=== PATIENT | female | born 1995 | race African-American/Black ===

== ENCOUNTER 2017-01-22 09:19 | Emergency (ER) | payer MEDICAID ==
[2017-01-22 10:21] LABS: BASOPHILS 0.1 % (0-2); EOSINOPHILS 0.5 % (0-7); HEMATOCRIT 39.1 % (36.0-48.0); IMMATURE GRANULOCYTES 0.1 % (0-5); LYMPHOCYTES 28.1 % (15-50); MCH 30.1 pg (26.0-34.0); MCHC 33.2 g/dL (31.0-37.0); MCV 90.5 fL (80.0-100.0); MEAN PLATELET VOLUME 10.7 fL (7.4-10.4); MONOCYTES 13.9 % (2-11); NEUTROPHILS 57.3 % (40-80); RBC 4.32 10x6/uL (4.00-5.40); WBC 8.1 10x3/uL (4.8-10.8)
[2017-01-22 10:37] LABS: PLATELET COUNT 297 10x3/uL (130-400)
[2017-01-22 10:44] LABS: ALBUMIN 3.6 g/dL (3.4-5.0); ALKALINE PHOSPHATASE 75 U/L (46-116); ALT (SGPT) 16 U/L (10-68); BILIRUBIN - TOTAL 0.54 mg/dL (0.2-1.3); CALC OSMOLALITY 271 mosm/kg (275-300); CARBON DIOXIDE 24.3 mmol/L (21.0-32.0); CHLORIDE - SERUM 101 mmol/L (98-107); CREATININE - SERUM 0.9 mg/dL (0.6-1.3); GLUCOSE 91 mg/dL (74-106); POTASSIUM - SERUM 3.2 mmol/L (3.5-5.1); PROTEIN - SERUM 8.1 g/dL (6.4-8.2); SODIUM 135 mmol/L (136-145); UREA NITROGEN 18 mg/dL (7-18); eGFR NON AFRICAN AMERICAN 83 mL/min (90-120)
[2017-01-22 12:31] LABS: HCG SERUM NEGATIVE (NEGATIVE)
[2017-01-22 12:54] LABS: APPEARANCE SLT CLOUDY (CLEAR); COLOR DK YELLOW (YELLOW); SPECIFIC GRAVITY 1.015 (1.005-1.020)
[2017-01-22 12:55] LABS: BACTERIA FEW /hpf (NONE SEEN); BILIRUBIN NEGATIVE (NEGATIVE); GLUCOSE NEGATIVE (NEGATIVE); KETONE LARGE mg/dL (NEGATIVE); LEUKOCYTE ESTERASE 1+ (NEGATIVE); NITRITE NEGATIVE (NEGATIVE); PROTEIN NEGATIVE (NEGATIVE); UROBILINOGEN NORMAL (NORMAL)
== END 2017-01-22 14:19 | disposition home or self-care (01) ==
LOC: D.ER 09:19
PROVIDERS: Emergency Medicine; Physician Assistant
DX: R10.11 Right upper quadrant pain (principal); E87.6 Hypokalemia; A59.9 Trichomoniasis, unspecified

== ENCOUNTER 2018-01-12 16:34 | Emergency (ER) | payer MEDICAID ==
[~2018-01-12] VITALS: Ht 160 cm; Wt 73.6 kg
[2018-01-12 16:37] VITALS: Ht 160 cm; Wt 73.6 kg
[2018-01-12 17:14] LABS: APPEARANCE CLOUDY (CLEAR); BILIRUBIN NEGATIVE (NEGATIVE); COLOR DK YELLOW (YELLOW); GLUCOSE NEGATIVE (NEGATIVE); HCG URINE NEGATIVE (NEGATIVE); KETONE MODERATE mg/dL (NEGATIVE); NITRITE NEGATIVE (NEGATIVE); PROTEIN 2+ mg/dL (NEGATIVE); SPECIFIC GRAVITY 1.005 (1.005-1.020)
[2018-01-12 17:17] LABS: BACTERIA MODERATE /hpf (NONE SEEN); MUCUS >1+ /lpf (NONE SEEN); RED CELLS - URINE >50 /hpf (0-5); WHITE CELLS - URINE >50 /hpf (0-5)
[2018-01-12 17:21] LABS: BASOPHILS 0.1 % (0-2); EOSINOPHILS 0.1 % (0-7); HEMATOCRIT 43.3 % (36.0-48.0); HEMOGLOBIN 14.4 g/dL (12-16); IMMATURE GRANULOCYTES 0.3 % (0-5); LYMPHOCYTES 28.4 % (15-50); MCH 30.3 pg (26.0-34.0); MCHC 33.3 g/dL (31.0-37.0); MCV 91.2 fL (80.0-100.0); MONOCYTES 6.3 % (2-11); NEUTROPHILS 64.8 % (40-80); PLATELET COUNT 309 10x3/uL (130-400); RBC 4.75 10x6/uL (4.00-5.40); RDW 13.2 % (11.5-14.5); WBC 6.9 10x3/uL (4.8-10.8)
[2018-01-12 17:34] LABS: HCG SERUM NEGATIVE (NEGATIVE)
[2018-01-12 17:39] LABS: ALBUMIN 4.1 g/dL (3.4-5.0); ANION GAP 11.6 mmol/L (8-16); BILIRUBIN - TOTAL 0.34 mg/dL (0.2-1.3); CALCIUM 9.6 mg/dL (8.5-10.1); CARBON DIOXIDE 29.6 mmol/L (21.0-32.0); CREATININE - SERUM 1.1 mg/dL (0.6-1.3); POTASSIUM - SERUM 3.2 mmol/L (3.5-5.1); PROTEIN - SERUM 8.4 g/dL (6.4-8.2)
[2018-01-12] MEDS ORDERED: ZOFRAN4 MG PO (19:30)
[2018-01-12] MEDS ORDERED: TYLENOL W/CODEI1 TAB PO (19:30)
[2018-01-12] MEDS ORDERED: MACROBID100 MG PO (19:30)
[2018-01-12 19:58] VITALS: BP 122/77
== END 2018-01-12 19:59 | disposition home or self-care (01) ==
LOC: D.ER 16:34
PROVIDERS: Emergency Medicine
DX: N39.0 Urinary tract infection, site not specified (principal); R51 Headache; R11.2 Nausea with vomiting, unspecified

== ENCOUNTER 2018-01-14 01:30 | Emergency (ER) | payer MEDICAID ==
[~2018-01-14] VITALS: Ht 160 cm; Wt 76.7 kg
[~2018-01-14 01:30] MED LIST: MACROBID100 MG PO; TYLENOL W/CODEI1 TAB PO; ZOFRAN4 MG PO
[2018-01-14 01:33] VITALS: Ht 160 cm; Wt 76.7 kg
[2018-01-14 02:18] LABS: ALBUMIN 3.9 g/dL (3.4-5.0); ANION GAP 14.1 mmol/L (8-16); BILIRUBIN - TOTAL 0.4 mg/dL (0.2-1.3); CALCIUM 9.2 mg/dL (8.5-10.1); POTASSIUM - SERUM 3.1 mmol/L (3.5-5.1); PROTEIN - SERUM 7.8 g/dL (6.4-8.2)
[2018-01-14 02:28] LABS: BASOPHILS 0 % (0-2); EOSINOPHILS 0 % (0-7); HEMATOCRIT 40.5 % (36.0-48.0); HEMOGLOBIN 13.4 g/dL (12-16); IMMATURE GRANULOCYTES 0.2 % (0-5); MCH 29.8 pg (26.0-34.0); MCHC 33.1 g/dL (31.0-37.0); MCV 90.2 fL (80.0-100.0); MEAN PLATELET VOLUME 11.2 fL (7.4-10.4); MONOCYTES 3.6 % (2-11); NEUTROPHILS 80.2 % (40-80); PLATELET COUNT 287 10x3/uL (130-400); RBC 4.49 10x6/uL (4.00-5.40); RDW 13.2 % (11.5-14.5); WBC 5.9 10x3/uL (4.8-10.8)
[2018-01-14 06:04] VITALS: BP 117/71
== END 2018-01-14 06:01 | disposition home or self-care (01) ==
LOC: D.ER 01:30
PROVIDERS: Family Medicine
DX: N39.0 Urinary tract infection, site not specified (principal); E87.6 Hypokalemia; R11.2 Nausea with vomiting, unspecified

== ENCOUNTER 2018-06-17 16:31 | Outpatient (CLI) | payer MEDICAID ==
[2018-01-14 01:33] VITALS: BMI 28.7
[~2018-06-17 16:31] MED LIST changes: -ZOFRAN ODT4 MG/UDTAB PO
[2018-06-17 17:26] LABS: APPEARANCE HAZY (CLEAR); COLOR YELLOW (YELLOW); NITRITE NEGATIVE (NEGATIVE); PROTEIN TRACE mg/dL (NEGATIVE); SPECIFIC GRAVITY 1.015 (1.005-1.020)
[2018-06-17 17:27] LABS: BACTERIA MODERATE /hpf (NONE SEEN); BILIRUBIN NEGATIVE (NEGATIVE); GLUCOSE NEGATIVE (NEGATIVE); KETONE MODERATE mg/dL (NEGATIVE); RED CELLS - URINE 0-5 /hpf (0-5); UROBILINOGEN NORMAL (NORMAL); WHITE CELLS - URINE 0-5 /hpf (0-5)
[2018-06-18] MEDS ORDERED: MACROBID100 MG PO (16:39)
[2018-06-18] MEDS ORDERED: ZOFRAN ODT4 MG/UDTAB PO (16:40)
== END 2018-06-17 20:16 | disposition home or self-care (01) ==
LOC: D.LDO 16:31
PROVIDERS: Obstetrics & Gynecology
DX: O26.892 Other specified pregnancy related conditions, second trimester (principal); Z3A.27 27 weeks gestation of pregnancy

== ENCOUNTER → 2018-06-17 | Emergency (ER) | payer MEDICAID ==
[~2018-06-17] MED LIST changes: +ZOFRAN ODT4 MG/UDTAB PO
== END | disposition home or self-care (01) ==
LOC: D.ER 15:47
DX: R10.9 Unspecified abdominal pain (principal); R51 Headache; R11.10 Vomiting, unspecified

== ENCOUNTER → 2018-06-18 11:16 | Outpatient (CLI) | payer MEDICAID ==
[2018-01-14 01:33] VITALS: BMI 28.7
[~2018-06-18 11:16] MED LIST changes: +ZOFRAN ODT4 MG/UDTAB PO
[2018-06-18 12:16] LABS: ALBUMIN 3.3 g/dL (3.4-5.0); ALKALINE PHOSPHATASE 57 U/L (46-116); ALT (SGPT) 35 U/L (10-68); CALC OSMOLALITY 269 mosm/kg (275-300); CALCIUM 9.1 mg/dL (8.5-10.1); CARBON DIOXIDE 23.3 mmol/L (21.0-32.0); CHLORIDE - SERUM 100 mmol/L (98-107); CREATININE - SERUM 0.8 mg/dL (0.6-1.3); GLUCOSE 116 mg/dL (74-106); POTASSIUM - SERUM 3.4 mmol/L (3.5-5.1); PROTEIN - SERUM 7.8 g/dL (6.4-8.2); SODIUM 135 mmol/L (136-145); UREA NITROGEN 10 mg/dL (7-18); eGFR NON AFRICAN AMERICAN > 90 mL/min (90-120)
[2018-06-18 12:33] LABS: BASOPHILS 0 % (0-2); EOSINOPHILS 0 % (0-7); HEMATOCRIT 34.2 % (36.0-48.0); HEMOGLOBIN 11.7 g/dL (12-16); IMMATURE GRANULOCYTES 0.4 % (0-5); LYMPHOCYTES 10.7 % (15-50); MCHC 34.2 g/dL (31.0-37.0); MCV 90.5 fL (80.0-100.0); MEAN PLATELET VOLUME 11.8 fL (7.4-10.4); MONOCYTES 7.4 % (2-11); NEUTROPHILS 81.5 % (40-80); PLATELET COUNT 244 10x3/uL (130-400); RBC 3.78 10x6/uL (4.00-5.40); RDW 12.8 % (11.5-14.5); WBC 10.2 10x3/uL (4.8-10.8)
[2018-06-18 14:21] LABS: APPEARANCE CLOUDY (CLEAR); BILIRUBIN NEGATIVE (NEGATIVE); COLOR YELLOW (YELLOW); GLUCOSE 1000 mg/dL (NEGATIVE); KETONE LARGE mg/dL (NEGATIVE); NITRITE NEGATIVE (NEGATIVE); PROTEIN NEGATIVE (NEGATIVE); UROBILINOGEN NORMAL (NORMAL)
[2018-06-18 14:22] LABS: EPITHELIAL CELLS 0-5 /hpf (0-5); RED CELLS - URINE 0-5 /hpf (0-5)
[2018-06-18 14:23] LABS: BACTERIA MODERATE /hpf (NONE SEEN); MUCUS <1+ /lpf (NONE SEEN)
== END | disposition home or self-care (01) ==
LOC: D.LDO 11:16
PROVIDERS: Obstetrics & Gynecology
DX: O26.892 Other specified pregnancy related conditions, second trimester (principal); Z3A.23 23 weeks gestation of pregnancy

== ENCOUNTER → 2018-08-25 13:32 | Outpatient (CLI) | payer MEDICAID ==
[2018-01-14 01:33] VITALS: BMI 28.7
[2018-08-25 14:53] LABS: COLOR YELLOW (YELLOW)
[2018-08-25 14:54] LABS: APPEARANCE CLEAR (CLEAR); BILIRUBIN NEGATIVE (NEGATIVE); GLUCOSE NEGATIVE (NEGATIVE); KETONE NEGATIVE (NEGATIVE); NITRITE NEGATIVE (NEGATIVE); PROTEIN NEGATIVE (NEGATIVE); UROBILINOGEN NORMAL (NORMAL)
[2018-08-25 14:56] LABS: WHITE CELLS - URINE 0-5 /hpf (0-5)
[2018-08-25 14:56] LABS: UDS - AMPHET NEGATIVE QUAL (NEGATIVE); UDS - BARB NEGATIVE QUAL (NEGATIVE); UDS - BENZO NEGATIVE QUAL (NEGATIVE); UDS - COCAINE NEGATIVE QUAL (NEGATIVE); UDS - OPIATE NEGATIVE QUAL (NEGATIVE); UDS - PCP NEGATIVE QUAL (NEGATIVE); UDS - THC POSITIVE QUAL (NEGATIVE)
[2018-08-25 14:57] LABS: BACTERIA FEW /hpf (NONE SEEN); EPITHELIAL CELLS 0-5 /hpf (0-5); MUCUS <1+ /lpf (NONE SEEN)
== END | disposition home or self-care (01) ==
LOC: D.LDO 13:32
PROVIDERS: Obstetrics & Gynecology
DX: O26.893 Other specified pregnancy related conditions, third trimester (principal); Z3A.32 32 weeks gestation of pregnancy; M54.5 Low back pain; R10.2 Pelvic and perineal pain

== ENCOUNTER 2018-09-03 04:35 | Outpatient (CLI) | payer MEDICAID ==
[2018-01-14 01:33] VITALS: BMI 28.7
[2018-09-03 06:28] LABS: UDS - AMPHET NEGATIVE QUAL (NEGATIVE); UDS - BARB NEGATIVE QUAL (NEGATIVE); UDS - BENZO NEGATIVE QUAL (NEGATIVE); UDS - COCAINE NEGATIVE QUAL (NEGATIVE); UDS - OPIATE NEGATIVE QUAL (NEGATIVE); UDS - PCP NEGATIVE QUAL (NEGATIVE); UDS - THC NEGATIVE QUAL (NEGATIVE)
[2018-09-03 06:52] LABS: APPEARANCE CLEAR (CLEAR); BILIRUBIN NEGATIVE (NEGATIVE); COLOR YELLOW (YELLOW); GLUCOSE NEGATIVE (NEGATIVE); KETONE NEGATIVE (NEGATIVE); NITRITE NEGATIVE (NEGATIVE); PROTEIN NEGATIVE (NEGATIVE); UROBILINOGEN NORMAL (NORMAL)
== END 2018-09-03 06:05 ==
LOC: D.LDO 04:35
PROVIDERS: Obstetrics & Gynecology
DX: O26.899 Other specified pregnancy related conditions, unspecified trimester (principal); Z3A.00 Weeks of gestation of pregnancy not specified

== ENCOUNTER → 2018-10-01 13:24 | Outpatient (CLI) | payer MEDICAID ==
[2018-01-14 01:33] VITALS: BMI 28.7
[2018-10-01 13:58] LABS: APPEARANCE CLEAR (CLEAR); BACTERIA FEW /hpf (NONE SEEN); BILIRUBIN NEGATIVE (NEGATIVE); COLOR YELLOW (YELLOW); EPITHELIAL CELLS 0-5 /hpf (0-5); GLUCOSE NEGATIVE (NEGATIVE); HYALINE CAST RARE /lpf (NONE SEEN); KETONE NEGATIVE (NEGATIVE); MUCUS <1+ /lpf (NONE SEEN); NITRITE NEGATIVE (NEGATIVE); PROTEIN NEGATIVE (NEGATIVE); SPECIFIC GRAVITY 1.015 (1.005-1.020); UROBILINOGEN NORMAL (NORMAL); WHITE CELLS - URINE OCC /hpf (0-5)
== END | disposition home or self-care (01) ==
LOC: D.LDO 13:24
PROVIDERS: ATTEND Obstetrics & Gynecology
DX: O47.9 False labor, unspecified (principal); Z3A.00 Weeks of gestation of pregnancy not specified

== ENCOUNTER 2018-10-09 05:10 | Inpatient (IN) | payer MEDICAID ==
[~2018-10-09] VITALS: Ht 160 cm; Wt 64.1 kg
[2018-10-09 06:37] VITALS: BP 115/72; Ht 160 cm; Wt 64.1 kg
[2018-10-09 07:01] LABS: HEMATOCRIT 32.1 % (36.0-48.0); HEMOGLOBIN 10.7 g/dL (12-16); MCH 29.3 pg (26.0-34.0); MCHC 33.3 g/dL (31.0-37.0); MCV 87.9 fL (80.0-100.0); MEAN PLATELET VOLUME 11.4 fL (7.4-10.4); RBC 3.65 10x6/uL (4.00-5.40); RDW 12.8 % (11.5-14.5); WBC 4.8 10x3/uL (4.8-10.8)
--- NOTE | 2018-10-09 13:32 | NUR ---
RECEIVED CORD PH FROM LABOR AND DELIVERY, TRIED TO RUN BUT NOT ENOUGH SAMPLE AVAILABLE. FAILED. CALLED AND SPOKE WITH DMITRI AND TOLD HER THE SAMPLE FAILED, SHE REPLIED OK, THANK YOU.
--- NOTE | 2018-10-09 19:38 | NUR ---
ROUNDS MADE. PT IN HIGH FOWLERS HOLDING AND CONVERSING WITH FAMILY MEMBERS. DENIES NEEDS AT THIS TIME. BED IN LOW POSITION WITH UPPER SIDE RAILS RAISED X2. CALL LIGHT AND PHONE WITHIN REACH. UPDATED ON PLANS TO TRANSFER TO DIFFERENT ROOM, VERBALIZED UNDERSTANDING AND AGREEMENT.
--- NOTE | 2018-10-09 20:46 | NUR ---
CONTINUES TO CONVERSE WITH FAMILY MEMBERS. GOWN PROVIDED PER PT REQUEST, ICE WATER PROVIDED. FOB HOLDING . PT DENIES NEEDS AT THIS TIME. FUNDUS FIRM, SMALL AMT RUBRA LOCHIA NOTED, NO CLOTS PRESENT. BED IN LOW POSITION WITH UPPER SIDE RAILS RAISED X2. CALL LIGHT AND PHONE WITHIN REACH.
[2018-10-09 22:10] VITALS: BP 109/64
--- NOTE | 2018-10-09 22:10 | NUR ---
PIV SL. VSS. FUNDUS REMAINS FIRM MIDLINE AND U2 WITH SMALL AMT RUBRA LOCHIA, NO CLOTS. BEDSIDE REPORT GIVEN TO Pallavi FELDMAN RN TO RESUME CARE OF PT.
--- NOTE | 2018-10-09 22:18 | NUR ---
THIS RN TOOK OVER CARE, REPORT FROM BIENVENIDO SPEARS RN, PT'S BED CHANGED OUT FROM A LABOR BED TO A REGULAR BED, ASSESSMENT PER FLOW SHEET, VS WERE OBTAINED PER BIENVENIDO SPEARS RN, FF, ML, U/U, LITE BLEEDING NOTED, PT REPORTS FLATUS, NO BM AND VOIDING WITH NO DIFFICULTY, PT DENIES PAIN OR NEEDS AT THIS TIME, COUCH MADE INTO BED FOR FOB AND OTHER CHILD
--- NOTE | 2018-10-10 00:15 | NUR ---
PT TALKING TO FOB, FOB HOLDING BABY, PT DENIES NEEDS OR PAIN AT THIS TIME, OTHER CHILD ASLEEP ON COUCH
--- NOTE | 2018-10-10 02:25 | NUR ---
PT AWAKE, TALKING TO FOB, DENIES NEEDS OR PAIN AT THIS TIME
--- NOTE | 2018-10-10 04:25 | NUR ---
PT RESTING WITH EYES CLOSED, RESP QUIET, NO DISTRESS NOTED, LEFT UNDISTURBED AT THIS TIME, FOB AND OTHER CHILD ASLEEP ON COUCH
--- NOTE | 2018-10-10 05:18 | NUR ---
PT CLARIFIER OPERATOR LIGHT, C/O SORENESS AND CRAMPING, ADM MOTRIN AND NORCO PER MD ORDERS, SEE EMAR, WITH FRESH H20, PT DENIES FURTHER NEEDS, FOB AWAKE, AND OTHER CHILD ASLEEP ON COUCH
--- NOTE | 2018-10-10 06:33 | NUR ---
PT AWAKE, RATES AMYRA PAIN AND CRAMPING 4/10, DENIES NEEDS AT THIS TIME, FOB AND OTHER CHILD ASLEEP ON COUCH
[2018-10-10 07:05] LABS: BASOPHILS 0.1 % (0-2); EOSINOPHILS 0.6 % (0-7); HEMATOCRIT 32.2 % (36.0-48.0); HEMOGLOBIN 10.6 g/dL (12-16); IMMATURE GRANULOCYTES 0.2 % (0-5); LYMPHOCYTES 24.2 % (15-50); MCH 29.1 pg (26.0-34.0); MCHC 32.9 g/dL (31.0-37.0); MCV 88.5 fL (80.0-100.0); MEAN PLATELET VOLUME 11.8 fL (7.4-10.4); MONOCYTES 9.2 % (2-11); NEUTROPHILS 65.7 % (40-80); PLATELET COUNT 172 10x3/uL (130-400); RBC 3.64 10x6/uL (4.00-5.40); RDW 12.9 % (11.5-14.5)
[2018-10-10 07:11] LABS: WBC 8.8 10x3/uL (4.8-10.8)
[2018-10-10 08:20] LABS: RAPID PLASMA REAGIN Non Reactive (Non Reactive)
--- NOTE | 2018-10-10 08:47 | NUR ---
Mery Pena 10/10/18 S: Patient states is going good. This is her first baby she has breastfeed. Denies questions or concerns, problems with sore nipples, or any questions. Patient states for 7:00 feeding she breastfed. Feels like things are going good. Verbally agrees to ask for help as needed. O: Patient sitting up in bed watching television, sleep in crib next to bed, family member in room. Congratulated on delivery and asked how are things going with . Explained benefits for mother and infant, positions, how to verify infant is latched correctly to the breast, breastmilk composition, normal feeding patterns, and supply and demand. is a learn experience for both mother and infant. does take time, practice, and patience in the beginning. Asked if any concerns or questions about ? Any problems with sore nipples, latching infant? A: Patient appears confident with due to no concerns expressed. P: Continue to support and promote during hospital visit. Chris Law, CLC
--- NOTE | 2018-10-10 09:00 | NUR ---
AM ASSESSMENT COMPLETED SEEN ON FLOWSHEET. DENIES PAIN OR DISCOMFORT AT THIS TIME. QUESTION ANSWERED ON WHEN SALINE LOCK COULD BE REMOVED. ADDITIONAL BREAKFAST TRAY ORDERED PER REQUEST OF PATIENT. FUNDUS FIRM AT U/U WITH LIGHT BLEEDING NO CLOTS NOTED WITH MASSAGE, MAYRA PADS PLACED IN BATHROOM. SIDE RAILS UP X 2 WITH CALL LIGHT IN REACH.
--- NOTE | 2018-10-10 09:45 | NUR ---
ADDITIONAL BREAKFAST TRAY GIVEN PER REQUEST.
--- NOTE | 2018-10-10 12:18 | NUR ---
denies pain or discomfort. jeffry pads placed in bathroom per request. in room and family present.
--- NOTE | 2018-10-10 15:30 | NUR ---
TRANSFERRED TO ROOM 1257, ORIENT TO ROOM AND HOW TO ACCESS NURSERY. LARGE GLASS OF WATER PER REQUEST. INFANT IN CRIB AT BEDSIDE WITH FAMILY MEMBERS PRESENT. RATES PAIN AT 0/10.
--- NOTE | 2018-10-10 19:36 | NUR ---
REC'D PT SITTING IN HIGH FOWLERS POSITION AND CONVERSING WITH FAMILY MEMBERS. C/O CRAMPING DURING BF 11/05, DISCUSSED INTERVERNTIONS, REQUESTS MOTRIN. DENIES ADDITIONAL NEEDS AT THIS TIME. SIGNIFICANT OTHER AT BEDSIDE, SUPPORTIVE AND ATTENTIVE TO PT. BED IN LOW POSITION WITH UPPER SIDE RAILS RAISED X2. CALL LIGHT AND PHONE WITHIN REACH. WILL CONTINUE TO MONITOR AND ASSIST PRN.
[2018-10-10 19:37] VITALS: BP 101/61
--- NOTE | 2018-10-10 19:38 | NUR ---
MOTRIN PROVIDED PER REQUEST. COMPLETED BF. SHIFT ASSESSMENT COMPLETED. VSS. FUNDUS FIRM MIDLINE AND U1 WITH SMALL AMT RUBRA LOCHIA, NO CLOTS PRESENT. NO PERINEAL/LABIAL SWELLING NOTED. REPORTS THAT SHE IS VOIDING WITHOUT DIFFICULTY. BREATH SOUNDS CLEAR AND EQUAL BILATERALLY. RESPIRATIONS REGULAR AND UNLABORED. BOWEL SOUNDS PRESENT AND ACTIVE IN ALL 4 QUADRANTS. PT REPORTS THAT SHE IS PASSING FLATUS. REPORTS THAT SHE IS USING PERIBOTTLE WITH VOIDS. SANDWICH TRAY, ICE WATER, AND PUDDING PROVIDED PER REQUEST. DENIES ADDITIONAL NEEDS AT THIS TIME. BED IN LOW POSITION WITH UPPER SIDE RAILS RAISED X2. CALL LIGHT AND PHONE WITHIN REACH.
--- NOTE | 2018-10-10 19:49 | NUR ---
INFANT BACK TO NBN PER PT REQUEST FOR SHIFT ASSESSMENT AND HEARING SCREEN. PT REQUEST BE BROUGHT BACK TO ROOM WHEN THESE ITEMS ARE COMPLETED. Pallavi PANTOJA LPN NOTIFIED.
--- NOTE | 2018-10-10 20:15 | NUR ---
PAIN REASSESSMENT COMPLETE. DENIES PAIN AND NEEDS. BED IN LOW POSITION WITH UPPER SIDE RAILS RAISED X2. CALL LIGHT AND PHONE WITHIN REACH. WILL CONTINUE TO MONITOR AND ASSIST PRN.
--- NOTE | 2018-10-10 21:23 | NUR ---
ROUNDS MADE. PT CONVERSING WITH SIGNIFICANT OTHER. SODA PROVIDED PER REQUEST. DENIES ADDITIONAL NEEDS. BED IN LOW POSITION WITH UPPER SIDE RAILS RAISED X2. CALL LIGHT AND PHONE WITHIN REACH. WILL CONTINUE TO MONITOR AND ASSIST PRN.
--- NOTE | 2018-10-10 22:12 | NUR ---
ROUNDS MADE. DENIES PAIN. C/O ITCHING TO RIGHT HAND PIV AND REQUEST THAT IT BE REMOVED. LABS REVIEWED. PIV REMOVED PER PT REQUEST. VERBALIZES UNDERSTANDING THAT IF IV ACCESS IS NEEDED A NEW ONE CAN BE PLACED. CURRENTLY BF INFANT. DENIES NEEDS. BED IN LOW POSITION WITH UPPER SIDE RAILS RAISED X2. CALL LIGHT AND PHONE WITHIN REACH. WILL CONTINUE TO MONITOR AND ASSIST PRN.
--- NOTE | 2018-10-11 00:38 | NUR ---
ROUNDS MADE. BF INFANT. DENIES PAIN AND NEEDS AT THIS TIME. SIGNIFICANT OTHER AT BEDSIDE, SUPPORTIVE AND ATTENTIVE TO PT AND INFANT NEEDS. BED IN LOW POSITION WITH UPPER SIDE RAILS RAISED X2. CALL LIGHT AND PHONE WITHIN REACH. WILL CONTINUE TO MONITOR AND ASSIST PRN.
--- NOTE | 2018-10-11 02:47 | NUR ---
PT IN SEMI-FOWLERS POSITION ON CELL PHONE. DENIES PAIN AND NEEDS AT THIS TIME. INFANT REMAINS IN ROOM IN OPEN CRIB. BED IN LOW POSITION WITH UPPER SIDE RAILS RAISED X2. CALL LIGHT AND PHONE WITHIN REACH. WILL CONTINUE TO MONITOR AND ASSIST PRN.
--- NOTE | 2018-10-11 04:14 | NUR ---
PT RESTING QUIETLY IN RIGHT SIDE. RESPIRATIONS REGULAR AND UNLABORED, NO S/S OF DISTRESS NOTED. PT INFORMED THAT WAS BEING TAKEN TO NBN FOR V/S CHECK AND WEIGHT, VERBALIZES AGREEMENT, REQUEST INFANT BE BROUGHT BACK TO ROOM FOLLOWING V/S AND WEIGHT CHECK. Pallavi PANTOJA LPN NOTIFIED.
--- NOTE | 2018-10-11 06:24 | NUR ---
PT RESTING QUIETLY ON RIGHT SIDE WITH EYES CLOSED. RESPIRATIONS REGULAR AND UNLABORED, NO S/S OF DISTRESS NOTED. BED IN LOW POSITION WITH UPPER SIDE RAILS RAISED X2. CALL LIGHT AND PHONE WITHIN REACH.
--- NOTE | 2018-10-11 07:02 | NUR ---
REPORT GIVEN TO DAY SHIFT.
--- NOTE | 2018-10-11 07:30 | NUR ---
PT CONTINUES TO SLEEP, RESP EVEN AND UNLABORED. SR UP X2, CALL LIGHT AND PHONE WITHIN REACH.
[2018-10-11 09:00] VITALS: BP 103/64
--- NOTE | 2018-10-11 09:00 | NUR ---
TO PT'S ROOM FOR AM ASSESSMENT. PT IS LYING IN BED, HOLDING AT THIS TIME. AM ASSESSMENT COMPLETED. SEE FLOWSHEET. PT DENIES PASSING CLOTS OR HEAVY BLEEDING TODAY. PT REPORTS THAT SHE WOULD TO HAVE THE FLU SHOT AND TDAP TODAY BEFORE GOING HOME. DENIES PAIN OR NEED FOR PAIN MEDICATION. LARGE MUGOF ICE WATER TO PT. DENIES ALL OTHER NEEDS AT THIS TIME. SRUP X 2, CALL LIGHT AND PHONE WITHIN REACH.
--- NOTE | 2018-10-11 11:45 | NUR ---
[facility] SERVES REGULAR LUNCH TRAY. PT DENIES ALL OTHER NEEDS AT THIS TIME.
--- NOTE | 2018-10-11 13:30 | NUR ---
DISCHARGE INSTRUCTIONS EXPLAINED TO PT, ALONG WITH COPIES GIVEN OF D/C INSTRUCTIONS, HEALTH SUMMARY, PP INSTRUCTION SHEET, HOME MED LIST. PT DENIES QUESTIONS. SEE EMAR FOR ALL MEDS ADM BY THIS RN. PT DISCHARGED IN STABLE CONDITION BY WHEELCHAIR, WITH IN CARSEAT, TO PRIVATE VEHICLE, WITH SIG OTHER DRIVING, AND OTHER YOUNG SON, WELL.
== END 2018-10-11 13:30 | disposition home or self-care (01) | DRG 806 ==
LOC: D.LD 05:10
PROVIDERS: ADMIT Obstetrics & Gynecology; ATTEND Obstetrics & Gynecology
PROC: 10E0XZZ Delivery of Products of Conception, External Approach (ICD-10-PCS; principal; 2018-10-09)
PROC: 3E033VJ Introduction of Other Hormone into Peripheral Vein, Percutaneous Approach (ICD-10-PCS; 2018-10-09)
DX: O99.324 Drug use complicating childbirth (principal); O98.82 Other maternal infectious and parasitic diseases complicating childbirth; Z37.0 Single live birth; B95.1 Streptococcus, group B, as the cause of diseases classified elsewhere

== ENCOUNTER 2019-05-07 16:05 | Observation (INO) | payer OTHER ==
[~2019-05-07] VITALS: Ht 160 cm; Wt 61.2 kg
--- NOTE | 2019-05-07 16:26 | NUR ---
URINE SPECIMEN OBTIANED, LABELED AT BS AND SENT TO LAB
[2019-05-07 16:36] LABS: BASOPHILS 0.1 % (0-2); EOSINOPHILS 0 % (0-7); HEMOGLOBIN 13.7 g/dL (12-16); IMMATURE GRANULOCYTES 0.3 % (0-5); MCH 30.9 pg (26.0-34.0); MCHC 34.3 g/dL (31.0-37.0); MCV 90.3 fL (80.0-100.0); MEAN PLATELET VOLUME 10.4 fL (7.4-10.4); MONOCYTES 4.6 % (2-11); RBC 4.43 10x6/uL (4.00-5.40); RDW 12.9 % (11.5-14.5); WBC 7.9 10x3/uL (4.8-10.8)
[2019-05-07 16:42] LABS: PLATELET COUNT 324 10x3/uL (130-400)
[2019-05-07 16:47] LABS: APPEARANCE CLEAR (CLEAR); COLOR YELLOW (YELLOW)
[2019-05-07 16:48] LABS: BILIRUBIN NEGATIVE (NEGATIVE); EPITHELIAL CELLS 0-5 /hpf (0-5); GLUCOSE NEGATIVE (NEGATIVE); KETONE LARGE mg/dL (NEGATIVE); NITRITE NEGATIVE (NEGATIVE); PROTEIN 1+ mg/dL (NEGATIVE); RED CELLS - URINE 0-5 /hpf (0-5); SPECIFIC GRAVITY 1.025 (1.005-1.020); UROBILINOGEN NORMAL (NORMAL); WHITE CELLS - URINE 0-5 /hpf (NEGATIVE)
[2019-05-07 16:49] LABS: BACTERIA MODERATE /hpf (NEGATIVE); MUCUS >1+ /lpf (NONE SEEN)
[2019-05-07 16:55] LABS: ALBUMIN 3.7 g/dL (3.4-5.0); ALKALINE PHOSPHATASE 54 U/L (46-116); ALT (SGPT) 15 U/L (10-68); AMYLASE - SERUM 150 U/L (25-115); BILIRUBIN - TOTAL 0.35 mg/dL (0.2-1.3); CALC OSMOLALITY 275 mosm/kg (275-300); CALCIUM 8.8 mg/dL (8.5-10.1); CHLORIDE - SERUM 102 mmol/L (98-107); CREATININE - SERUM 0.8 mg/dL (0.6-1.3); GLUCOSE 114 mg/dL (74-106); LIPASE 355 U/L (73-393); POTASSIUM - SERUM 3.6 mmol/L (3.5-5.1); PROTEIN - SERUM 8.1 g/dL (6.4-8.2); SODIUM 138 mmol/L (136-145); UREA NITROGEN 9 mg/dL (7-18); eGFR NON AFRICAN AMERICAN > 90 mL/min (90-120)
--- NOTE | 2019-05-07 18:23 | NUR ---
PT BEGAN VOMITING AGAIN AT THIS TIME, TREATING PROVIDER NOTIFIED.
--- NOTE | 2019-05-07 19:17 | NUR ---
HAND OFF REPORT GIVEN TO ANNIA RICHMOND
[2019-05-07 19:30] VITALS: BP 108/60
--- NOTE | 2019-05-07 19:31 | NUR ---
PT AMBULATED TO RESTROOM INDEPENDENTLY.
[2019-05-07 20:00] VITALS: BP 109/62
[2019-05-07 20:17] VITALS: BP 109/62; BMI 23.9
[2019-05-08] VITALS: BP 99/54
[2019-05-08 04:00] VITALS: BP 133/55
[2019-05-08 08:00] VITALS: BP 109/68
[2019-05-08 08:37] VITALS: Ht 160 cm; Wt 61.2 kg
[2019-05-08 09:36] VITALS: BP 109/68
--- NOTE | 2019-05-08 09:46 | NUR ---
ALERT AND ORIENTED X4. RESP. EVEN AND UNLABORED.HRRR. ABDOMEN SOFT WITH BS NOTED. STATES FEELS BETTER TODAY. RESP.CTA. HRRR IV TO RT. HAND INTACT. MD HERE WITH ANTICIPATED DISCHARGE. ENCOURAGED TO USE CALL LIGHT FOR ASSSIT.
--- NOTE | 2019-05-08 10:46 | NUR ---
IV DISCONTINUED AND VERBALIZED UNDERSTANDING OF DISCHARGE INSTRUCTIONS. STABLE AT TIME OF DEPARTURE.
== END 2019-05-08 10:46 | disposition home or self-care (01) ==
LOC: D.ER 16:05 → OBSVTIME 19:03 → D.M3 19:03 → D.ER 19:44 → D.M3 20:49
PROVIDERS: Family Medicine; ADMIT Student in an Organized Health Care Education/Training Program; ATTEND Student in an Organized Health Care Education/Training Program
DX: O21.9 Vomiting of pregnancy, unspecified (principal); Z3A.09 9 weeks gestation of pregnancy

== ENCOUNTER 2019-05-16 00:39 | Emergency (ER) | payer OTHER ==
[~2019-05-16] VITALS: Ht 160 cm; Wt 61.4 kg
[2019-05-16 00:44] VITALS: Ht 160 cm; Wt 61.4 kg
[2019-05-16 01:32] LABS: BASOPHILS 0.1 % (0-2); EOSINOPHILS 0.3 % (0-7); HEMATOCRIT 44.1 % (36.0-48.0); HEMOGLOBIN 16.3 g/dL (12-16); IMMATURE GRANULOCYTES 0.3 % (0-5); LYMPHOCYTES 32.4 % (15-50); MCH 31.4 pg (26.0-34.0); MEAN PLATELET VOLUME 10.4 fL (7.4-10.4); MONOCYTES 12.6 % (2-11); NEUTROPHILS 54.3 % (40-80); PLATELET COUNT 365 10x3/uL (130-400); RBC 5.19 10x6/uL (4.00-5.40); RDW 12.5 % (11.5-14.5); WBC 9.6 10x3/uL (4.8-10.8)
[2019-05-16 01:49] LABS: HCG SERUM POSITIVE (NEGATIVE)
[2019-05-16 02:08] LABS: ALBUMIN 3.8 g/dL (3.4-5.0); ANION GAP 15.6 mmol/L (8-16); BILIRUBIN - TOTAL 0.81 mg/dL (0.2-1.3); CALCIUM 9.5 mg/dL (8.5-10.1); CARBON DIOXIDE 23.1 mmol/L (21.0-32.0); PROTEIN - SERUM 8.6 g/dL (6.4-8.2)
[2019-05-16 02:10] LABS: POTASSIUM - SERUM 2.7 mmol/L (3.5-5.1)
[2019-05-16 02:14] LABS: APPEARANCE HAZY (CLEAR); BACTERIA MODERATE /hpf (NEGATIVE); BILIRUBIN NEGATIVE (NEGATIVE); COLOR DK YELLOW (YELLOW); EPITHELIAL CELLS OCC /hpf (0-5); GLUCOSE NEGATIVE (NEGATIVE); KETONE LARGE mg/dL (NEGATIVE); NITRITE NEGATIVE (NEGATIVE); PROTEIN TRACE mg/dL (NEGATIVE); RED CELLS - URINE 0-5 /hpf (0-5); UROBILINOGEN NORMAL (NORMAL); WHITE CELLS - URINE 25-50 /hpf (NEGATIVE)
[2019-05-16 03:30] VITALS: BP 126/79
== END 2019-05-16 03:28 | disposition home or self-care (01) ==
LOC: D.ER 00:39
PROVIDERS: Family Medicine
DX: O26.892 Other specified pregnancy related conditions, second trimester (principal); R06.02 Shortness of breath

== ENCOUNTER 2019-11-04 01:45 | Outpatient (CLI) | payer OTHER ==
[~2019-11-04] VITALS: Ht 160 cm; Wt 59.0 kg
[2019-11-04 02:57] LABS: BASOPHILS 0 % (0-2); EOSINOPHILS 0 % (0-7); HEMATOCRIT 38.2 % (36.0-48.0); HEMOGLOBIN 12.3 g/dL (12-16); IMMATURE GRANULOCYTES 0.4 % (0-5); LYMPHOCYTES 14.9 % (15-50); MCH 28.9 pg (26.0-34.0); MCHC 32.2 g/dL (31.0-37.0); MCV 89.9 fL (80.0-100.0); MEAN PLATELET VOLUME 11.6 fL (7.4-10.4); MONOCYTES 4.7 % (2-11); RBC 4.25 10x6/uL (4.00-5.40); RDW 13.2 % (11.5-14.5); WBC 5.5 10x3/uL (4.8-10.8)
[2019-11-04 02:58] LABS: PLATELET COUNT 258 10x3/uL (130-400)
[2019-11-04] MEDS ORDERED: COMPAZINE25 MG PO (07:24)
[2019-11-04 07:37] VITALS: BP 101/58; Ht 160 cm; Wt 59.0 kg
[2019-11-04 08:22] LABS: ALBUMIN 3.6 g/dL (3.4-5.0); ALKALINE PHOSPHATASE 134 U/L (30-120); ALT (SGPT) 37 U/L (10-68); AMYLASE - SERUM 157 U/L (25-115); CALC OSMOLALITY 270 mosm/kg (275-300); CALCIUM 9.3 mg/dL (8.5-10.1); CARBON DIOXIDE 16.5 mmol/L (21.0-32.0); CHLORIDE - SERUM 98 mmol/L (98-107); CREATININE - SERUM 0.8 mg/dL (0.6-1.3); GLUCOSE 99 mg/dL (74-106); LIPASE 314 U/L (73-393); POTASSIUM - SERUM 4.1 mmol/L (3.5-5.1); SODIUM 135 mmol/L (136-145); UREA NITROGEN 14 mg/dL (7-18); eGFR NON AFRICAN AMERICAN > 90 mL/min (90-120)
== END 2019-11-04 15:46 | disposition home or self-care (01) ==
LOC: D.LDO 01:45
PROVIDERS: ATTEND Obstetrics & Gynecology
DX: O26.899 Other specified pregnancy related conditions, unspecified trimester (principal); Z3A.00 Weeks of gestation of pregnancy not specified

== ENCOUNTER 2019-11-27 05:00 | Inpatient (IN) | payer OTHER ==
[~2019-11-27] VITALS: Ht 162.6 cm; Wt 59.0 kg
[~2019-11-27 05:00] MED LIST changes: +COMPAZINE25 MG PO
[2019-11-27 05:17] VITALS: BP 100/62; BMI 22.3
[2019-11-27 06:13] LABS: MCH 27.9 pg (26.0-34.0); MCHC 31.3 g/dL (31.0-37.0); MCV 89.4 fL (80.0-100.0); MEAN PLATELET VOLUME 11.6 fL (7.4-10.4); RBC 3.58 10x6/uL (4.00-5.40); RDW 13.2 % (11.5-14.5)
[2019-11-27 06:38] LABS: UDS - AMPHET NEGATIVE QUAL (NEGATIVE); UDS - BARB NEGATIVE QUAL (NEGATIVE); UDS - BENZO NEGATIVE QUAL (NEGATIVE); UDS - COCAINE NEGATIVE QUAL (NEGATIVE); UDS - OPIATE NEGATIVE QUAL (NEGATIVE); UDS - PCP NEGATIVE QUAL (NEGATIVE); UDS - THC NEGATIVE QUAL (NEGATIVE)
[2019-11-27 07:41] LABS: BILIRUBIN NEGATIVE (NEGATIVE); GLUCOSE NEGATIVE (NEGATIVE); KETONE NEGATIVE (NEGATIVE); NITRITE NEGATIVE (NEGATIVE); SPECIFIC GRAVITY 1.015 (1.005-1.020); UROBILINOGEN 4 mg/dL (NORMAL)
[2019-11-27 07:42] LABS: BACTERIA MODERATE /hpf (NEGATIVE); EPITHELIAL CELLS 0-5 /hpf (0-5); RED CELLS - URINE 0-5 /hpf (0-5); YEAST >1+ WITH HYPHAE /hpf (NONE SEEN)
[2019-11-27 14:12] VITALS: Ht 162.6 cm; Wt 59.0 kg
--- NOTE | 2019-11-27 19:20 | NUR ---
RN TO PT BEDSIDE, VSS. PT DENIES ANY PAIN AT THIS TIME. PT EATING IN BED. STATES ALL NEEDS ARE MET AT THIS TIME. BED IN LOWEST POSITION, SIDE RAILS UP X2, CALL LIGHT WITHIN REACH.
[2019-11-27 19:21] VITALS: BP 111/76
--- NOTE | 2019-11-27 19:46 | NUR ---
PT ASSISTED TO STANDING POSITION, PT STEADY ON FEET, PT AMBULATED TO BATHROOM WITH STANDBY ASSISTANCE. U.O. OF 475ML TO URINE HAT AT THIS TIME.
--- NOTE | 2019-11-27 20:05 | NUR ---
PT MOVED TO [id number]
[2019-11-27 23:55] VITALS: BP 120/70
--- NOTE | 2019-11-27 23:57 | NUR ---
RN TO PT BEDSIDE FOR ROUNDING, PT STATES PAIN IS 1/10, FUNDUS IS FIRM, MIDLINE, 2 BELOW, SCANT RUBRA LOCHIA NOTED TO PERIPAD. PT STATES ALL NEEDS CURRENTLY MET. BED IN LOWEST POSITION, CALL LIGHT IN REACH, SIDE RAILS UPX2.
--- NOTE | 2019-11-28 04:15 | NUR ---
RN TO PT BEDSIDE FOR ROUNDING, PT IS SLEEPING AT THIS TIME.
[2019-11-28 07:11] LABS: RAPID PLASMA REAGIN Non Reactive (Non Reactive)
--- NOTE | 2019-11-28 07:29 | NUR ---
ASSUMED CARE OF THIS PATIENT. LAYING IN BED HOLDING IN ARMS. DENIES NEEDING ANYTHING AT THIS TIME. SIDERAILS UP X2, CALL LIGHT IN REACH. TO CALL IF ANYTHING IS NEEDED. 0+ RUBELL IMMUNE. BOTTLEFEEDING. WILL CHECK TDAP STATUS.
--- NOTE | 2019-11-28 08:38 | NUR ---
INFANT IN NURSERY. SLEEPING ON RIGHT SIDE, RESPIRATIONS EVEN. WILL COMPLETE SHIFT ASSESSMENT WHEN AWAKE.
[2019-11-28 09:34] VITALS: BP 112/70
[2019-11-28 09:34] LABS: BASOPHILS 0.1 % (0-2); EOSINOPHILS 0.4 % (0-7); HEMATOCRIT 32.2 % (36.0-48.0); HEMOGLOBIN 10.1 g/dL (12-16); IMMATURE GRANULOCYTES 0.4 % (0-5); LYMPHOCYTES 24.3 % (15-50); MCH 28.1 pg (26.0-34.0); MCHC 31.4 g/dL (31.0-37.0); MCV 89.7 fL (80.0-100.0); MEAN PLATELET VOLUME 11.8 fL (7.4-10.4); MONOCYTES 9.6 % (2-11); NEUTROPHILS 65.2 % (40-80); PLATELET COUNT 184 10x3/uL (130-400); RBC 3.59 10x6/uL (4.00-5.40); RDW 13.2 % (11.5-14.5)
--- NOTE | 2019-11-28 09:37 | NUR ---
SHIFT ASSESSMENT COMPLETED. MOTRIN 600 MG GIVEN PO FOR RELIEF OF 5/10 ABDOMINAL CRAMPING AFTER DISCUSSING PAIN MANAGEMENT OPTION. INFANT BACK IN ROOM. GETTING READY TO BOTTLE FEED. , NON SMOKER, SAYS SHE HAD FLU AND TDAP VACCINATION DURING .
[2019-11-28 09:40] LABS: WBC 7.3 10x3/uL (4.8-10.8)
--- NOTE | 2019-11-28 10:55 | NUR ---
SITTING UP IN BED CHANGING DIAPER. SAYS HER CRAMPING IS BETTER. NOW 10/05. DENIES NEEDING ANYTHING. TO CALL WHEN READY TO SHOWER OR IF NEEDING ANYTHING. FRESH WATER IN ROOM. CALL LIGHT IN REACH.
--- NOTE | 2019-11-28 12:47 | NUR ---
LAYING TOWARD RIGHT SIDE WATCHING TV. ASKED FOR LIGHTS TO BE TURNED OFF. DENIES NEEDING ANYTHING. INFANT IN CRIB-RESPIRATIONS EVEN. PLACE CRIB ON SIDE OF BED SO PT CAN VIEW . SIDERAILS UP X 2, CALL LIGHT IN REACH.
--- NOTE | 2019-11-28 15:54 | NUR ---
SITTING UP IN BED TEACHING FOB HOW TO SWADDLE . DENIES NEEDING ANYTHING AT PRESENT. TO CALL IF ANYTHING IS NEEDED.
--- NOTE | 2019-11-28 16:49 | NUR ---
SITTING UP IN BED WATCHING TV AND LOOKING AT PHONE. VS OBTAINED U/2 FIRM MIDLINE. 3-4/10 CRAMPING STATES "NOT BAD IT WAS BEFORE". OFFERED PAIN MEDICATION. MOTRIN 600 MG GIVEN PO FOR RELIEF. NO ADDITIONAL REQUESTS AT THIS TIME. INFANT SLEEPING IN CRIB. TO CALL IF ANYTHING ELSE IS NEEDED. VERBALIZED UNDERSTANDING.
[2019-11-28 16:52] VITALS: BP 115/80
--- NOTE | 2019-11-28 18:11 | NUR ---
SITTING UP IN BED HOLDING . SAYS SHE IS NO LONGER HAVING ANY CRAMPING. PLANS SHOWER THIS PM. DINNER TRAY AT BEDSIDE. NO REQUESTS. TO CALL IF ANYTHING IS NEEDED. ANTICIPATE DC HOME TOMORROW. HX +GBS.
--- NOTE | 2019-11-28 19:20 | NUR ---
RECEIVED SHIFT REPORT FROM TIFFANY SHAH RN, PT BOTTLE FEEDING , INFORMED PT THAT I WILL COME BACK SHORTLY TO DO ASSESSMENT, PT VERBALIZES UNDERSTANDING, DENIES NEEDS OR PAIN AT THIS TIME
[2019-11-28 20:25] VITALS: BP 109/61
--- NOTE | 2019-11-28 20:25 | NUR ---
ASSESSMENT PER FLOW SHEET, VS OBTAINED, SALINE LOCK IN LEFT FA INTACT WITH NO REDNESS OR EDEMA, FF, ML, U/2, PT REPORTS LITE BLEEDING WITH NO CLOTS, PT DENIES FLATUS, SMALL BM TODAY, AND VOIDING WITH NO DIFFICULTY, PT DENIES PAIN, REQUESTED AND SERVED CUP OF ICE, PT DENIES FURTHER NEEDS, INFANT IN ARMS
--- NOTE | 2019-11-28 21:32 | NUR ---
PT LOOKING AT CELL PHONE, IN OPEN CRIB CART AT BEDSIDE, PT REQUESTED AND SERVED BALTAZAR COTTON, PT DENIES FURTHER NEEDS
--- NOTE | 2019-11-28 22:35 | NUR ---
PT BOTTLE FEEDING INFANT, DENIES NEEDS OR PAIN AT THIS TIME, BED IN LOW POSITION, SIDE RAILS X 2, CALL LIGHT IN REACH
--- NOTE | 2019-11-28 23:55 | NUR ---
PT READY FOR SHOWER, TO NSY VIA OPEN CRIB CART PER THIS RN, TOWELS AND WASH CLOTHS PROVIDED, PT REPORTS THAT SHE HAS OWN TOILETRIES AND GOWN, PT TO SHOWER, COMPLETE BEDDING CHANGE DONE
--- NOTE | 2019-11-29 00:15 | NUR ---
PT OUT OF SHOWER, SALINE LOCK REMOVED, TIP INTACT, PRESSURE HELD, BANDAID APPLIED, PT DENIES NEEDS
--- NOTE | 2019-11-29 02:29 | NUR ---
PT RESTING WITH EYES CLOSED, RESP QUIET, NO DISTRESS NOTED, LEFT UNDISTURBED AT THIS TIME, IN OPEN CRIB CART AT BEDSIDE
--- NOTE | 2019-11-29 04:27 | NUR ---
PT AWAKE, REPORTS JUST FINISHED FEEDING , DENIES NEEDS OR PAIN AT THIS TIME
--- NOTE | 2019-11-29 06:25 | NUR ---
PT RESTING WITH EYES CLOSED, RESP QUIET, NO DISTRESS NOTED, LEFT UNDISTURBED AT THIS TIME, IN OPEN CRIB CART AT BEDSIDE
--- NOTE | 2019-11-29 07:15 | NUR ---
ASSUMED CARE OF THIS PATIENT. RETURNING FROM BATHROOM. DENIES NEEDING ANYTHING. IN CRIB. REMINDED PT NOT TO KEEP EYE ON EVEN WHEN IN BATHROOM AND NOT TO LEAVE INFANT ALONE WITH BR DOOR CLOSED. EXPLAINED REASON FOR THIS. WILL COMPLETE SHIFT ASSESSMENT WHEN BACK IN BED.
[2019-11-29 07:49] VITALS: BP 116/66
--- NOTE | 2019-11-29 07:49 | NUR ---
SHIFT ASSESSMENT COMPLETED.
--- NOTE | 2019-11-29 09:00 | NUR ---
DR RUSH VISITED PATIENT. ANTICIPATE DC HOME TODAY.
--- NOTE | 2019-11-29 10:05 | NUR ---
SITTING UP IN BED. INFANT IN CRIB. DENIES NEEDING ANYTHING AT THIS TIME. SAYS SHE WAS TOLD SHE CAN GO HOME WHEN BABY IS DISCHARGED. WILL CALL MD FOR ORDERS WHEN DC'D. CALL LIGHT IN REACH.
--- NOTE | 2019-11-29 10:58 | NUR ---
RECEIVED TDAP 10/11/2018 WILL NEED TDAP IN 2028.
--- NOTE | 2019-11-29 13:01 | NUR ---
DC TEACHING COMPLETED TO INCLUDE ROUTINE PP VAG DEL CARE, DANGER SIGNS, S&S INFECTION, PP DEPRESSION, BOTTLEFEEDING, BREASTCARE, IMMUNIZATIONS, MEDICATION ADMINISTRATION AND FOLLOW-UP. BOTH VERBAL AND WRITTEN INFORMATION GIVEN. NO SPECIFIC QUESTIONS ASKED. TO CALL SATURDAY TO SCHEDULE 4 WEEK VISIT.
--- NOTE | 2019-11-29 14:25 | NUR ---
DC'D VIA WHEELCHAIR TO CAR. IN CARSEAT. ALL BELONGINGS REMOVED FROM ROOM. HAS DC INSTRUCTIONS. FAMILY MEMBER DRIVING.
--- NOTE | 2019-11-29 15:17 | NUR ---
FOUND PRESCRIPTION FOR NORCO AND MOTRIN ON PT RECORD. ATTEMPTED TO CONTACT PATIENT ON HER PHONE. LOCATED SIGNIFICANT OTHER'S NUMBER WHO WILL CONTACT HER AND HAVE HER CALL.
--- NOTE | 2019-11-29 15:20 | NUR ---
PT RETURNED CALL. INFORMED THAT SHE HAS A PRESCRIPTION HERE. SHE WILL COME TO PICK IT UP TODAY.
== END 2019-11-29 14:25 | disposition home or self-care (01) | DRG 806 ==
LOC: D.LD 05:00
PROVIDERS: ADMIT Obstetrics & Gynecology; ATTEND Obstetrics & Gynecology
PROC: 10E0XZZ Delivery of Products of Conception, External Approach (ICD-10-PCS; principal; 2019-11-27)
DX: O36.5930 Maternal care for other known or suspected poor fetal growth, third trimester, not applicable or unspecified (principal); O98.32 Other infections with a predominantly sexual mode of transmission complicating childbirth; Z37.0 Single live birth; O99.324 Drug use complicating childbirth; Z3A.38 38 weeks gestation of pregnancy; O99.824 Streptococcus B carrier state complicating childbirth; A59.9 Trichomoniasis, unspecified; F12.90 Cannabis use, unspecified, uncomplicated

== ENCOUNTER 2020-04-06 00:03 | Emergency (ER) | payer OTHER ==
[~2020-04-06] VITALS: Ht 162.6 cm; Wt 60.9 kg
[2020-04-06 00:16] VITALS: Ht 162.6 cm; Wt 60.9 kg
[2020-04-06 01:10] LABS: BASOPHILS 0 % (0-2); EOSINOPHILS 0 % (0-7); HEMATOCRIT 39.5 % (36.0-48.0); IMMATURE GRANULOCYTES 0.3 % (0-5); LYMPHOCYTES 7.6 % (15-50); MCHC 32.9 g/dL (31.0-37.0); MCV 88.2 fL (80.0-100.0); MEAN PLATELET VOLUME 10.1 fL (7.4-10.4); NEUTROPHILS 90.1 % (40-80); RBC 4.48 10x6/uL (4.00-5.40); RDW 13.3 % (11.5-14.5); WBC 7.5 10x3/uL (4.8-10.8)
[2020-04-06 01:16] LABS: PLATELET COUNT 330 10x3/uL (130-400)
[2020-04-06 01:24] LABS: ANION GAP 19.6 mmol/L (8-16); CALCIUM 9.3 mg/dL (8.5-10.1); POTASSIUM - SERUM 3.6 mmol/L (3.5-5.1)
[2020-04-06 01:29] LABS: ALBUMIN 4.3 g/dL (3.4-5.0); BILIRUBIN - TOTAL 0.52 mg/dL (0.2-1.3); MAGNESIUM - SERUM 1.9 mg/dL (1.8-2.4); PROTEIN - SERUM 8.4 g/dL (6.4-8.2)
[2020-04-06] MEDS ORDERED: ZOFRAN ODT4 MG/UDTAB PO (02:12)
[2020-04-06 02:35] LABS: HCG URINE POSITIVE (NEGATIVE)
[2020-04-06 02:36] LABS: BILIRUBIN NEGATIVE (NEGATIVE); KETONE LARGE mg/dL (NEGATIVE); NITRITE NEGATIVE (NEGATIVE); UROBILINOGEN NORMAL (NORMAL)
[2020-04-06 02:42] LABS: BACTERIA FEW /hpf (NONE SEEN); EPITHELIAL CELLS 0-5 /hpf (0-5)
[2020-04-06] MEDS ORDERED: MACROBID100 MG PO (02:58)
[2020-04-06 03:29] LABS: UDS - AMPHET NEGATIVE QUAL (NEGATIVE); UDS - BARB NEGATIVE QUAL (NEGATIVE); UDS - BENZO NEGATIVE QUAL (NEGATIVE); UDS - COCAINE NEGATIVE QUAL (NEGATIVE); UDS - OPIATE NEGATIVE QUAL (NEGATIVE); UDS - PCP NEGATIVE QUAL (NEGATIVE); UDS - THC POSITIVE QUAL (NEGATIVE)
[2020-04-06 04:07] VITALS: BP 111/61
== END 2020-04-06 04:08 | disposition home or self-care (01) ==
LOC: D.ER 00:03
PROVIDERS: Family Medicine
DX: O26.899 Other specified pregnancy related conditions, unspecified trimester (principal); Z3A.00 Weeks of gestation of pregnancy not specified; R11.2 Nausea with vomiting, unspecified; R51 Headache

== ENCOUNTER 2020-04-12 17:48 | Observation (INO) | payer OTHER ==
[~2020-04-12] VITALS: Ht 162.6 cm; Wt 59.0 kg
[2020-04-12 18:55] LABS: BASOPHILS 0.3 % (0-2); EOSINOPHILS 0.1 % (0-7); HEMATOCRIT 47.6 % (36.0-48.0); IMMATURE GRANULOCYTES 0.3 % (0-5); LYMPHOCYTES 35.1 % (15-50); MCHC 35.7 g/dL (31.0-37.0); MEAN PLATELET VOLUME 10.4 fL (7.4-10.4); NEUTROPHILS 50.2 % (40-80); RBC 5.67 10x6/uL (4.00-5.40); RDW 12.8 % (11.5-14.5); WBC 8.9 10x3/uL (4.8-10.8)
[2020-04-12 18:56] LABS: PLATELET COUNT 465 10x3/uL (130-400)
[2020-04-12 18:59] LABS: BILIRUBIN NEGATIVE (NEGATIVE); KETONE MODERATE mg/dL (NEGATIVE); NITRITE NEGATIVE (NEGATIVE); UROBILINOGEN NORMAL mg/dL (< 2)
[2020-04-12 19:02] LABS: EPITHELIAL CELLS 0-5 /hpf (0-5)
[2020-04-12 19:03] LABS: BACTERIA MODERATE /HPF (NONE SEEN)
[2020-04-12 19:09] LABS: ANION GAP 15.5 mmol/L (8-16); CARBON DIOXIDE 25.8 mmol/L (21.0-32.0); CREATININE - SERUM 1.3 mg/dL (0.6-1.3); POTASSIUM - SERUM 3.3 mmol/L (3.5-5.1)
[2020-04-12 19:30] VITALS: BP 123/80
[2020-04-12 19:38] LABS: ALBUMIN 4.6 g/dL (3.4-5.0); BILIRUBIN - TOTAL 1.25 mg/dL (0.2-1.3); PROTEIN - SERUM 9.2 g/dL (6.4-8.2)
[2020-04-12 20:00] VITALS: BP 123/79
[2020-04-12 20:30] VITALS: BP 122/79
[2020-04-12 21:00] VITALS: BP 126/72
--- NOTE | 2020-04-12 23:34 | NUR ---
PT REC'D FROM ER VIA WHEELCHAIR WITH A DX OF PYELONEPHRITIS AND HYPEREMESIS GRAVIDARUM. IV TO THE RT AC. SITE CLEAR AND PATENT. HYPOACTIVE BS TO ALL QUADRANTS. VSS. DENIES NAUSEA ON ARRIVAL. NO DISTRESS NOTED. Diane VILLARREAL RN
--- NOTE | 2020-04-12 23:59 | NUR ---
PT COMPLAINS OF NAUSEA. PT MEDICATED WITH REGLAN IV. WILL CONTINUE TO MONITOR. Diane VILLARREAL RN
[2020-04-13 00:40] VITALS: BP 129/83; BMI 22.3
--- NOTE | 2020-04-13 02:00 | NUR ---
PT REC'D IN BED ASLEEP AT THIS TIME. NO DISTRESS NOTED. NO VOMITING NOTED. Diane VILLARREAL RN
[2020-04-13 04:10] VITALS: BP 95/70
--- NOTE | 2020-04-13 04:10 | NUR ---
PT REC'D IN BED AT THIS TIME. RESTING WELL AT THIS TIME. NO VOMITING NOTED THIS SHIFT. NAUSEA RESOLVED WITH REGLAN. IV SITE REMAINS PATENT. NO DISTRESS NOTED. Diane VILLARREAL RN
--- NOTE | 2020-04-13 05:51 | NUR ---
REGLAN 10 MG GIVEN SIVP. PT RESTING. NO DISTRESS NOTED. Diane VILLARREAL RN
[2020-04-13 07:47] LABS: ANION GAP 10.7 mmol/L (8-16); BASOPHILS 0.2 % (0-2); CALCIUM 8.9 mg/dL (8.5-10.1); CARBON DIOXIDE 28.7 mmol/L (21.0-32.0); CREATININE - SERUM 1.2 mg/dL (0.6-1.3); EOSINOPHILS 0.5 % (0-7); HEMATOCRIT 43.3 % (36.0-48.0); HEMOGLOBIN 14.7 g/dL (12-16); IMMATURE GRANULOCYTES 0.2 % (0-5); MCH 29.3 pg (26.0-34.0); MCHC 33.9 g/dL (31.0-37.0); MCV 86.4 fL (80.0-100.0); MEAN PLATELET VOLUME 10.5 fL (7.4-10.4); MONOCYTES 11.8 % (2-11); NEUTROPHILS 46.3 % (40-80); PLATELET COUNT 394 10x3/uL (130-400); POTASSIUM - SERUM 3.4 mmol/L (3.5-5.1); RBC 5.01 10x6/uL (4.00-5.40); WBC 8.7 10x3/uL (4.8-10.8)
[2020-04-13 07:58] VITALS: BP 133/71
--- NOTE | 2020-04-13 08:39 | NUR ---
CARL KIRKLAND. DR. Teresa AT PT BS FOR ASSESSMENT. WILL CONT CLEAR LIQUID DIET AND ATTEMPT TO TRANSITION TO BLAND DIET FOR LUNCH. PT DENIES ANY NEEDS AT THIS TIME. WILL CONT TO MONITOR PT STATUS.
--- NOTE | 2020-04-13 08:44 | NUR ---
PT RESTING IN BED IN RIGHT LATERAL POSITION IN NO ACUTE DISTRESS. NEW BAG OF NS WITH 20MEQ KCL HUNG TO INFUSE VIA PUMP AT 125 CC/HR. PT DENIES ANY NEEDS AT THIS TIME. WILL CONT TO MONITOR PT STATUS.
--- NOTE | 2020-04-13 09:26 | NUR ---
RN TO PT BS FOR ROUNDS. PT RESTING IN BED, ON STOMACH, IN NO ACUTE DISTRESS. PT DENIES ANY NEEDS AT THIS TIME. WILL CONT TO MONITOR PT STATUS.
--- NOTE | 2020-04-13 10:17 | NUR ---
RN TO PT BS. PT RESTING IN BED IN NO ACUTE DISTRESS. PT DENIES ANY NEEDS AT THIS TIME. WILL CONT TO MONITOR PT STATUS.
--- NOTE | 2020-04-13 11:22 | NUR ---
RN TO PT BS FOR ROUNDS. PT RESTING IN BED, ON STOMACH, IN NO ACUTE DITRESS. BED IN LOW POSITION, SIDE RAILS UP TIMES 2, CALL LIGHT AND PHONE IN REACH. WILL CONT TO MONITOR PT STATUS.
[2020-04-13 12:08] VITALS: BP 113/84
--- NOTE | 2020-04-13 12:08 | NUR ---
RN TO PT BS. PT SITTING IN BED, TEXTING ON PHONE, PT IN NO ACUTE DISTRESS. BALTAZAR COTTON AND CARTER PROVIDED TO PT AT THIS TIME. PT DENIES ANY FURTHER NEEDS.
--- NOTE | 2020-04-13 12:20 | NUR ---
10 MEQ KCL RIDER HUNG TO INFUSE VIA PUMP AT 100 CC/HR. PT DENIES ANY NEEDS AT THIS TIME, PT STATES SHE TOLERATED BALTAZAR CRACKERS WITHOUT DIFFICULTY. WILL CONT TO MONITOR PT STATUS.
[2020-04-13 14:09] VITALS: BMI 22.3
--- NOTE | 2020-04-13 14:23 | NUR ---
DR. Teresa AT PT BS TO DISCUSS POC. WILL PLAN TO D/C PT HOME. 20G IV TO RIGHT AC D/C'D AT THIS TIME, TIP INTACT, PRESSURE DRESSING PLACED TO SITE. WILL PREPARE D/C PAPERWORK.
--- NOTE | 2020-04-13 14:37 | NUR ---
REVIEWED DISCHARGE INSTRUCTIONS WITH PATIENT. STATES UNDERSTANDING. INSTRUCTED PT TO SCHEDULE NEW PATIENT APPOINTMENT TO BEGIN OBSTETRIC CARE. NO PRESCRIPTIONS TO GIVE PATIENT. PRESCRIPTIONS CALLED IN BY PHYSICAN. PT. DISCHARGED HOME VIA WHEELCHAIR TO PRIVATE VEHICLE.
[2020-04-13 14:45] VITALS: Ht 162.6 cm; Wt 59.0 kg
--- NOTE | 2020-04-13 15:19 | NUR ---
PT TRANSPORTED TO PRIVATE VEHICLE FOR D/C VIA WC. PT IN NO ACUTE DISTRESS.
== END 2020-04-13 15:20 | disposition home or self-care (01) ==
LOC: D.ER 17:48 → D.WS 22:14 → OBSVTIME 23:34 → D.WS 04-13 15:20
PROVIDERS: Emergency Medicine; Family Medicine; ADMIT Obstetrics & Gynecology; ATTEND Obstetrics & Gynecology
DX: O26.891 Other specified pregnancy related conditions, first trimester (principal); E87.1 Hypo-osmolality and hyponatremia; E87.6 Hypokalemia; N39.0 Urinary tract infection, site not specified; R11.2 Nausea with vomiting, unspecified; Z3A.01 Less than 8 weeks gestation of pregnancy